=== PATIENT | male | born 1985 | race Caucasian/White ===

== ENCOUNTER 2020-11-16 02:21 | Emergency (ER) | payer BC ==
[~2020-11-16] VITALS: Ht 188 cm; Wt 269.9 kg
[2020-11-16] MEDS ORDERED: LISI20TA26 (02:44)
[2020-11-16] MEDS ORDERED: SIMV20TA26 (02:44)
--- NOTE | 2020-11-16 03:07 | ED Abdominal Pain ---
General Chief Complaint: Abdominal/GI Problems Stated Complaint: ABD PAIN, Nursing Triage Note: C/O LEFT SIDED STABBING ABDOMINAL PAIN SINCE 209911/15/20. Source of Information: Patient Exam Limitations: No Limitations History of Present Illness Date Seen by Provider: Nov 16, 2020 Time Seen by Provider: 02:50 Initial Comments Patient presents ER by private conveyance from home with chief complaint of left upper quadrant abdominal pain starting about 9:00 last night, 6 hours prior to arrival. It has progressed from a small amount of pain now to a 9 out of 10 pain that radiates through to his back. No dysuria hematuria history of kidney stones or abdominal surgeries. No trauma. He just had labs a couple weeks ago by his primary care provider Jj at [facility] with a hemoglobin A1c of 6.7 and unremarkable otherwise labs. He is not having dysuria or diarrhea but he does have some constipation had a bowel movement yesterday which was hard and he had a struggle to have it. He tried some baking soda and water which made no difference in his pain. Allergies and Home Medications Allergies Coded Allergies: No Known Drug Allergies (Unverified , 11/16/20) Patient Home Medication List Home Medication List Reviewed: Yes Review of Systems Review of Systems Constitutional: No chills, No diaphoresis EENTM: No Blurred Vision, No Double Vision Respiratory: Denies Cough, Denies Shortness of Air, Denies SOA With Exertion Cardiovascular: Denies Chest Pain, Denies Lightheadedness Gastrointestinal: Abdominal Pain, Constipated; Denies Diarrhea, Denies Nausea Genitourinary: Denies Burning, Denies Pain Musculoskeletal: No back pain, No joint pain All Other Systems Reviewed Negative Unless Noted: Yes Past [id number] Hx Patient Social History Tobacco Use?: No Substance use?: No Substance frequency: Rarely Pt feels they are or have been: No Physical Exam Vital Signs Vital Signs - First Documented 11/16/20 02:36 Temp 36.6 Pulse 138 Resp 18 B/P (MAP) 164/90 (114) Pulse Ox 95 O2 Delivery Room Air Capillary Refill : Less Than 3 Seconds Height/Weight/BMI Height: '" Weight: lbs. oz. kg; 76.00 BMI Method: General Appearance: WD/WN, mild distress HEENT: PERRL/EOMI, pharynx normal Neck: full range of motion, normal inspection Respiratory: lungs clear, normal breath sounds, no respiratory distress, no accessory muscle use Cardiovascular: normal peripheral pulses, regular rate, rhythm Gastrointestinal: normal bowel sounds, non tender, soft, no organomegaly Extremities: normal range of motion, non-tender, normal capillary refill Neurologic/Psychiatric: alert, normal mood/affect, oriented x 3 Skin: normal color, warm/dry Progress/Results/Core Measures Results/Orders Lab Results Laboratory Tests Test 11/16/20 03:04 11/16/20 03:15 Range/Units Urine Color YELLOW Urine Clarity CLEAR Urine pH 5.5 5-9 Urine Specific [place] >=1.030 1.016-1.022 Urine Protein NEGATIVE NEGATIVE Urine Glucose (UA) NEGATIVE NEGATIVE Urine Ketones NEGATIVE NEGATIVE Urine Nitrite NEGATIVE NEGATIVE Urine Bilirubin 1+ H NEGATIVE Urine Urobilinogen 1.0 < = 1.0 MG/DL Urine Leukocyte Esterase NEGATIVE NEGATIVE Urine RBC (Auto) NEGATIVE NEGATIVE Urine RBC NONE /HPF Urine WBC NONE /HPF Urine Squamous Epithelial Cells 5-10 /HPF Urine Crystals NONE /LPF Urine Bacteria FEW H /HPF Urine Casts NONE /LPF Urine Mucus SMALL H /LPF Urine Culture Indicated NO White Blood Count 10.8 4.3-11.0 10^3/uL Red Blood Count 4.69 4.30-5.52 10^6/uL Hemoglobin 13.6 13.3-17.7 g/dL Hematocrit 43 40-54 % Mean Corpuscular Volume 91 80-99 fL Mean Corpuscular Hemoglobin 29 25-34 pg Mean Corpuscular Hemoglobin Concent 32 32-36 g/dL Red Cell Distribution Width 13.7 10.0-14.5 % Platelet Count 257 130-400 10^3/uL Mean Platelet Volume 10.0 9.0-12.2 fL Immature Granulocyte % (Auto) 0 % Neutrophils (%) (Auto) 72 42-75 % Lymphocytes (%) (Auto) 17 12-44 % Monocytes (%) (Auto) 6 0-12 % Eosinophils (%) (Auto) 3 0-10 % Basophils (%) (Auto) 1 0-10 % Neutrophils # (Auto) 7.9 H 1.8-7.8 10^3/uL Lymphocytes # (Auto) 1.9 1.0-4.0 10^3/uL Monocytes # (Auto) 0.7 0.0-1.0 10^3/uL Eosinophils # (Auto) 0.4 H 0.0-0.3 10^3/uL Basophils # (Auto) 0.1 0.0-0.1 10^3/uL Immature Granulocyte # (Auto) 0.0 0.0-0.1 10^3/uL Sodium Level 144 135-145 MMOL/L Potassium Level 4.0 3.6-5.0 MMOL/L Chloride Level 103 98-107 MMOL/L Carbon Dioxide Level 26 21-32 MMOL/L Anion Gap 15 H 5-14 MMOL/L Blood Urea Nitrogen 17 7-18 MG/DL Creatinine 0.95 0.60-1.30 MG/DL Estimat Glomerular Filtration Rate > 60 BUN/Creatinine Ratio 18 Glucose Level 130 H 70-105 MG/DL Calcium Level 9.4 8.5-10.1 MG/DL Corrected Calcium 9.4 8.5-10.1 MG/DL Total Bilirubin 0.2 0.1-1.0 MG/DL Aspartate Amino Transf (AST/SGOT) 14 5-34 U/L Alanine Aminotransferase (ALT/SGPT) 19 0-55 U/L Alkaline Phosphatase 45 40-136 U/L C-Reactive Protein High Sensitivity 2.80 H 0.00-0.50 MG/DL Total Protein 7.5 6.4-8.2 GM/DL Albumin 4.0 3.2-4.5 GM/DL Lipase 18 8-78 U/L My Orders Orders - LOWELL RIVAS Ed Iv/Invasive Line Start (11/16/20 03:04) Ns Iv 1000 Ml (Sodium Chloride 0.9%) (11/16/20 03:15) Fentanyl Inj (Sublimaze Injection) (11/16/20 03:15) Cbc With Automated Diff (11/16/20 03:04) Comprehensive Metabolic Panel (11/16/20 03:04) Hs C Reactive Protein (11/16/20 03:04) Lipase (11/16/20 03:04) Ua Culture If Indicated (11/16/20 03:04) Medications Given in ED Current Medications Medications Dose Ordered Sig/Gerald Route Start Time Stop Time Status Last Admin Dose Admin Fentanyl Citrate 50 mcg ONCE ONCE IVP 11/16/20 03:15 11/16/20 03:16 DC 11/16/20 03:23 50 MCG Vital Signs/I&O 11/16/20 11/16/20 02:36 04:17 Temp 36.6 36.5 Pulse 138 114 Resp 18 16 B/P (MAP) 164/90 (114) 164/83 (114) Pulse Ox 95 95 O2 Delivery Room Air Room Air Blood Pressure Mean: 114 Progress Progress Note : Time: 04:10 Progress Note The patient is pain-free. He has no discomfort at this time. His labs are unremarkable and his urine is unremarkable. We reviewed with him the likelihood of constipation/obstipation as the source of his abdominal discomfort and we will put him on MiraLAX, simethicone Tylenol and NSAIDs. Return precautions discussed. Patient is in agreement this plan. Departure Impression Primary Impression: Constipation Qualified Codes: K59.00 - Constipation, unspecified Additional Impression: Abdominal pain Qualified Codes: R10.12 - Left upper quadrant pain Disposition: 01 HOME, SELF-CARE Condition: Stable Departure-Patient Inst. Decision time for Depature: 04:05 Referrals: [facility]/ (PCP) Primary Care Physician FERNANOD FAM APRN (Family) Primary Care Physician Patient Instructions: Abdominal Pain, Adult ED, Constipation, Adult ED Add. Discharge Instructions: Drink plenty of fluids. 1 capful of MiraLAX/polyethylene glycol and 6 to 8 ounces of fluids a your choice 2-3 times a day until you have copious liquid stools. Simethicone/Gas-X as necessary for bowel pain. Tylenol 1000 mg every 8 hours as necessary for belly pain. Ibuprofen 800 mg every 8 hours as necessary for belly pain. Return to the ER for intractable pain, fever especially above 102.5 or other worrisome symptoms. All discharge instructions reviewed with patient and/or family. Voiced understanding. LOWELL RIVAS Nov 16, 2020 03:07
[2020-11-16] MEDS ORDERED: NS IV 1000 ML 1,000 ML IV SCH (03:15)
[2020-11-16] MEDS ORDERED: fentaNYL INJ 100 MCG/2 ML AMP IVP ONE (03:15)
[2020-11-16 03:20] LABS: BILIRUBIN,URINE 1+ (NEGATIVE); CLARITY,URINE CLEAR; COLOR,URINE YELLOW; GLUCOSE, URINE (UA) NEGATIVE (NEGATIVE); KETONES,URINE NEGATIVE (NEGATIVE); LEUKOCYTE ESTERASE ,URINE NEGATIVE (NEGATIVE); NITRITE,URINE NEGATIVE (NEGATIVE); PH,URINE 5.5 (5-9); PROTEIN,URINE NEGATIVE (NEGATIVE)
[2020-11-16 03:37] LABS: BASOPHILS # (AUTO) 0.1 10^3/uL (0.0-0.1); BASOPHILS % (AUTO) 1 % (0-10); EOSINOPHILS # (AUTO) 0.4 10^3/uL (0.0-0.3); EOSINOPHILS % (AUTO) 3 % (0-10); HEMATOCRIT 43 % (40-54); HEMOGLOBIN 13.6 g/dL (13.3-17.7); LYMPHOCYTES # (AUTO) 1.9 10^3/uL (1.0-4.0); LYMPHOCYTES % (AUTO) 17 % (12-44); MEAN CORPUSCULAR HEMOGLOBIN 29 pg (25-34); MEAN CORPUSCULAR HGB CONC 32 g/dL (32-36); MEAN CORPUSCULAR VOLUME 91 fL (80-99); MONOCYTES # (AUTO) 0.7 10^3/uL (0.0-1.0); MONOCYTES % (AUTO) 6 % (0-12); NEUTROPHILS # (AUTO) 7.9 10^3/uL (1.8-7.8); NEUTROPHILS % (AUTO) 72 % (42-75); PLATELET COUNT 257 10^3/uL (130-400); WHITE BLOOD COUNT 10.8 10^3/uL (4.3-11.0)
[2020-11-16 03:40] LABS: BACTERIA,URINE FEW /HPF
[2020-11-16 03:53] LABS: CHLORIDE 103 MMOL/L (98-107); SODIUM 144 MMOL/L (135-145)
[2020-11-16 03:55] LABS: CALCIUM 9.4 MG/DL (8.5-10.1)
[2020-11-16 03:56] LABS: GLUCOSE 130 MG/DL (70-105); TOTAL PROTEIN 7.5 GM/DL (6.4-8.2)
[2020-11-16 03:57] LABS: CARBON DIOXIDE 26 MMOL/L (21-32)
[2020-11-16 03:58] LABS: BILIRUBIN,TOTAL 0.2 MG/DL (0.1-1.0)
[2020-11-16 03:59] LABS: ALKALINE PHOSPHATASE 45 U/L (40-136)
[2020-11-16 04:00] LABS: CREATININE SERUM 0.95 MG/DL (0.60-1.30); GFR ESTIMATED > 60
[2020-11-16 04:01] LABS: BUN/CREATININE RATIO 18
[2020-11-16 04:02] LABS: ALANINE AMINOTRANSFERASE 19 U/L (0-55)
[2020-11-16 04:03] LABS: LIPASE 18 U/L (8-78)
[2020-11-16 04:17] VITALS: BP 164/83
== END 2020-11-16 04:23 | disposition home or self-care (01) ==
LOC: EDUNIT# 02:21 → ER 02:25
DX: K59.00 Constipation, unspecified (principal); R10.12 Left upper quadrant pain
CPT/HCPCS: 36415; 80053; 81000; 83690; 85025; 86141